=== PATIENT | female | born 1960 | race Hispanic/Latino ===

== ENCOUNTER 2024-10-05 22:26 | Emergency (ER) | payer OTHER, SELFPAY ==
--- OUTSIDE RECORDS SUMMARY | 2024-10-05 22:29 | XMS REPORT | Continuity of Care Document ---
Author Name Unknown Address [address] [facility] [address] [place] [address] [facility] Address [address] [facility] [place] [address] Care Team Providers Care Stock Patch Sawyer Name Role Phone Chaya Sesay Attending Clinician Unavailabl e Physician, No Primary or Family Admitting Clinic stacie Unavailable Chaya Sesay Admitting Clinician Unavailabl e Payers Payer Name Policy Type Policy Number Effective Date Expirati on Date Source Allergies, Adverse Reactions, Alerts Allergy Name Allergy Type Status Severity Reaction(s) Onset Date Inactive Date Treating Clinician Comments Source No Known Allergie s DA Active U 12-21 00:00: 00 [facility] Encounters Start Date/Time End Date/Time Encounter Type Admission Type Attending Clinicians Care Facility Care Department Encounter ID Source 2021-12-21 08:00:00 Inpatient Chaya Wallace [facility] [id number] [facility] 2021-12-23 20:57:00 2021-12-24 15:30:00 [facility] [id number] [facility] 2021-12-23 20:57:00 2021-12-24 15:30:00 Inpatient Chaya Wallace [facility] [id number] [facility] Results Test Description Test Time Test Comments Results Result Co mments Source [id number] 05:07:00* Test Item Value Reference Range Interpretation Comme nts PHOSPHOROUS (test code = PHOS) 3.9 MG/DL 2.5-4.9 N [id number] 05:07:00* Test Item Value Reference Range Interpretation Comme nts MAGNESIUM (test code = MAG) 1.99 mg/dL 1.80-2.40 N CBC W/AUTO [id number] 04:52:00* Test Item Value Reference Range Interpretation Comme nts WHITE BLOOD CELL (test code = WBC) 9.4 x10 3/uL 4.5-11.0 N RED BLOOD CELL (test code = RBC) 4.32 x10 6/uL 3.54-5.02 N HEMOGLOBIN (test code = HGB) 12.8 g/dL 11.0-15.0 N HEMATOCRIT (test code = HCT) 39.5 % 33.0-45.0 N MEAN CELL VOLUME (test code = MCV) 91.4 fL 81.0-99.0 N MEAN CELL HGB (test code = MCH) 29.6 pg 27.0-33.0 N MEAN CELL HGB CONCETRATION (test code = MCHC) 32.4 g/dL 33.0-37.0 L RED CELL DISTRIBUTION WIDTH CV (test code = RDW) 13.0 % 11.5-14.5 N RED CELL DISTRIBUTION WIDTH SD (test code = RDW-SD) 43.1 fL 37.0-54.0 N PLATELET COUNT (test code = PLT) 199 x10 3/uL 150-400 N MEAN PLATELET VOLUME (test c ode = MPV) 11.7 fL 7.0-9.0 H NEUTROPHIL % (test code = NT%) 86.5 % 56.0-77.0 H IMMATURE GRANULOCYTE % (test code = IG%) 0.2 % 0.0-2.0 N LYMPHOCYTE % (test code = LY%) 10.9 % 14.0-32.0 L MONOCYTE % (test code = MO%) 2.3 % 4.8-9.0 L EOSINOPHIL % (test code = EO%) 0.0 % 0.3-3.7 L BASOPHIL % (test code = BA%) 0.1 % 0.0-2.0 N NUCLEATED RBC % (test code = NRBC%) 0.0 % 0-0 N NEUTROPHIL # (test code = NT#) 8.12 x10 3/uL 2.0-7.6 H IMMATURE GRANULOCYTE # (test code = IG#) 0.02 x10 3/uL 0.00-0.03 N LYMPHOCYTE # (test code = LY#) 1.02 x10 3/uL 1.0-3.8 N MONOCYTE # (test code = MO#) 0.22 x10 3/uL 0.1-0.8 N EOSINOPHIL # (test code = EO#) 0.00 x10 3/uL 0.0-0.2 N BASOPHIL # (test code = BA#) 0.01 x10 3/uL 0.0-0.2 N NUCLEATED RBC # (test code = NRBC#) 0.00 x10 3/uL 0.0-0.1 N MANUAL DIFF REQUIRED (test c ode = MDIFF) NO BASIC METABOLIC [id number] 18:11:00* Test Item Value Reference Range Interpretation Comme nts SODIUM (test code = NA) 143 mEq/L 134-147 N POTASSIUM (test code = K) 3.9 mEq/L 3.4-5.0 N CHLORIDE (test code = CL) 110 mEq/L 100-108 H CARBON DIOXIDE (test code = CO2) 28 mEq/l 21-33 N ANION GAP (test code = GAP) 8 0-20 N GLUCOSE (test code = GLU) 130 mg/dL 70-110 H BLOOD UREA NITROGEN (test code = BUN) 9 mg/dL 7-18 N GLOMERULAR FILTRATION RATE (test code = GFR) 84.5 80-90 N Units of measure = ml/min/1.73 m2 CREATININE (test code = CREAT) 0.7 mg/dL 0.6-1.3 N CALCIUM (test code = CA) 9.0 mg/dL 8.0-10.5 N [id number] 18:11:00* Test Item Value Reference Range Interpretation Comme nts PHOSPHOROUS (test code = PHOS) 3.7 MG/DL 2.5-4.9 N [id number] 18:11:00* Test Item Value Reference Range Interpretation Comme nts MAGNESIUM (test code = MAG) 2.07 mg/dL 1.80-2.40 N CBC W/AUTO [id number] 17:56:00* Test Item Value Reference Range Interpretation Comme nts WHITE BLOOD CELL (test code = WBC) 8.0 x10 3/uL 4.5-11.0 RED BLOOD CELL (test code = RBC) 4.35 x10 6/uL 3.54-5.02 N HEMOGLOBIN (test code = HGB) 12.9 g/dL 11.0-15.0 N HEMATOCRIT (test code = HCT) 39.5 % 33.0-45.0 N MEAN CELL VOLUME (test code = MCV) 90.8 fL 81.0-99.0 N MEAN CELL HGB (test code = MCH) 29.7 pg 27.0-33.0 N MEAN CELL HGB CONCETRATION (test code = MCHC) 32.7 g/dL 33.0-37.0 L RED CELL DISTRIBUTION WIDTH CV (test code = RDW) 13.1 % 11.5-14.5 N RED CELL DISTRIBUTION WIDTH SD (test code = RDW-SD) 43.3 fL 37.0-54.0 N PLATELET COUNT (test code = PLT) 225 x10 3/uL 150-400 N MEAN PLATELET VOLUME (test c ode = MPV) 10.6 fL 7.0-9.0 H NEUTROPHIL % (test code = NT%) 69.7 % 56.0-77.0 N IMMATURE GRANULOCYTE % (test code = IG%) 0.4 % 0.0-2.0 N LYMPHOCYTE % (test code = LY%) 26.5 % 14.0-32.0 N MONOCYTE % (test code = MO%) 2.1 % 4.8-9.0 L EOSINOPHIL % (test code = EO%) 0.8 % 0.3-3.7 N BASOPHIL % (test code = BA%) 0.5 % 0.0-2.0 N NUCLEATED RBC % (test code = NRBC%) 0.0 % 0-0 N NEUTROPHIL # (test code = NT#) 5.56 x10 3/uL 2.0-7.6 N IMMATURE GRANULOCYTE # (test code = IG#) 0.03 x10 3/uL 0.00-0.03 N LYMPHOCYTE # (test code = LY#) 2.11 x10 3/uL 1.0-3.8 N MONOCYTE # (test code = MO#) 0.17 x10 3/uL 0.1-0.8 N EOSINOPHIL # (test code = EO#) 0.06 x10 3/uL 0.0-0.2 N BASOPHIL # (test code = BA#) 0.04 x10 3/uL 0.0-0.2 N NUCLEATED RBC # (test code = NRBC#) 0.00 x10 3/uL 0.0-0.1 N MANUAL DIFF REQUIRED (test c ode = MDIFF) NO - XR KNEE 1 OR 2 V [id number] 00:00:00 [facility] 1960 Sex: F FAX: Chaya Sesay DO [phone] Cooks: St: ADM FAX: Walt Guan NP [phone] Name: KAREN FRANCISCO [facility] : 1960 Age/S: 61/F [address] [place] [address] Blvd Unit #: [id number] Loc: [place] [address] Phys: Walt Guan NP Acct: [id number] Dis Date: Status: ADM IN PHONE #: [phone] Exam Date: 12/23/2021 1740 FAX #: [phone] Reason: s/p right tka EXAMS: CPT CODE: [id number] XR KNEE 1OR 2 V RT 13629 PROCEDURE INFORMATION: Exam: XR Right Knee Exam date and time: 12/23/2021 5:27 PM Age: 61 years old Clinical indication: Screening exam; S/P right tka TECHNIQUE: Imaging protocol: Radiologic exam of the Right knee. Views: 1 or 2 views. COMPARISON: CT LOWER EXTRM W/O C RT 12/21/2021 12:05 PM Findings: Total knee arthroplasty is present with cemented femoral and tibial components without evidence for hardware loosening. The patella has been resurfaced. No acute fracture or dislocation is seen. Expected anterior knee soft tissue gas and drainage tube seen. Impression: Postop total k nee arthroplasty. No complications identified radiographically. at 7699 Reported and signed by: Oliver Mckeon M.D. CC: Chhaya Guan NP Technologist: RT Gerald(Gloria) Trnscrd Date/Time/By: 12/23/2021 (7835) : By: [email or web address] Orig Print D/T: S: 12/23/2021 (0025) PAGE 1 Signed Report URINALYSIS [id number] 11:12:00* Test Item Value Reference Range Interpretation Comme nts UA COLOR (test code = COLU) YELLOW YEL/STRAW UA APPEARANCE (test code = APPU) CLEAR CLEAR UA GLUCOSE DIPSTICK (test co de = DGLUU) NEGATIVE NEGATIVE UA BILIRUBIN DIPSTICK (test code = BILU) NEGATIVE NEGATIVE UA KETONE DIPSTICK (test cod e = KETU) NEGATIVE NEGATIVE UA SPECIFIC GRAVITY (test co de = SGU) 1.016 1.005-1.030 N UA BLOOD DIPSTICK (test code = KELLY) NEGATIVE NEGATIVE UA PH DIPSTICK (test code = FREDA) 5.0 5.0-7.0 N UA PROTEIN DIPSTICK (test co de = PROU) NEGATIVE NEGATIVE UA UROBILINIOGEN DIPSTICK (t est code = URO) 0.2 mg/dL 0.2-1.0 UA NITRITE DIPSTICK (test co de = RICCI) NEGATIVE NEGATIVE UA LEUKOCYTE ESTERASE DIPSTI CK (test code = LEUU) 1+ NEGATIVE A UA RBC (test code = RBCU) 0-3 RBC/HPF 0-3 UA WBC NO REFLEX (test code = WBCUCL) 4-9 WBC/HPF 0-3 A UA BACTERIA (test code = BACU) TRACE /HPF NONE SEEN UA SQUAMOUS CELLS (test code = SQU) 0-5 /HPF NONE SEEN UA MUCUS (test code = MUCU) TRACE /LPF NONE SEEN COMPREHENSIVE METABOLIC [id number] 11:05:00* Test Item Value Reference Range Interpretation Comme nts SODIUM (test code = NA) 138 mEq/L 134-147 N POTASSIUM (test code = K) 3.8 mEq/L 3.4-5.0 N CHLORIDE (test code = CL) 107 mEq/L 100-108 N CARBON DIOXIDE (test code = CO2) 29 mEq/l 21-33 N ANION GAP (test code = GAP) 6 0-20 N GLUCOSE (test code = GLU) 103 mg/dL 70-110 N BLOOD UREA NITROGEN (test code = BUN) 11 mg/dL 7-18 N GLOMERULAR FILTRATION RATE (test code = GFR) 84.5 80-90 N Units of measure = ml/min/1.73 m2 CREATININE (test code = CREAT) 0.7 mg/dL 0.6-1.3 N TOTAL PROTEIN (test code = PROT) 7.1 g/dL 6.4-8.2 N ALBUMIN (test code = ALB) 4.00 g/dL 3.4-5.0 N CALCIUM (test code = CA) 8.9 mg/dL 8.0-10.5 N BILIRUBIN TOTAL (test code = BILT) 0.40 mg/dL 0.0-1.0 N SGOT/AST (test code = AST) 23 IUnit/L 15-37 N SGPT/ALT (test code = ALT) 22 IUnit/L 30-65 L ALKALINE PHOSPHATASE TOTAL (test code = ALKP) 95 IUnit/L 20-125 N PROTHROMBIN [id number] 10:55:00* Test Item Value Reference Range Interpretation Comme nts PROTHROMBIN TIME PATIENT (test code = PTP) 10.9 SECONDS 9.3-12.9 N INTERNATIONAL NORMAL RATIO (test code = INR) 1.0 0.8-1.2 N TARGET INR BY INDICATION Indication INR1. Prophylaxis of venous thrombosis 2.0 - 3.0 (orthopedic surgery), Prophylaxis of venous thrombosis (other than high-risk surgery), Treatment of Deep Vein Thrombosis/Pulmonary Embolism, Prevention of systemic embolism - Tissue heart valves, Acute Myocardial Infarction (to prevent systemic embolism), Valvular heart disease, Atrial Fibrillation, Bileaflet mechanical valve in aortic position.2. Mechanical prosthetic valves (high risk), 2.5 - 3.5 Presence of Lupus Anticoagulant or Antiphospholipid Antibodies, Prevention of systemic embolism - Acute Myocardial Infarction (to prevent recurrent infarct). THROMBOPLASTIN TIME [id number] 10:55:00* Test Item Value Reference Range Interpretation Comme nts THROMBOPLASTIN TIME PARTIAL (test code = PTT) 31.8 Seconds 25.0-39.5 N Therapeutic Rang e: 50.4 - 88.3 Seconds Effective 09/19/2018 CBC W/AUTO [id number] 10:45:00* Test Item Value Reference Range Interpretation Comme nts WHITE BLOOD CELL (test code = WBC) 5.6 x10 3/uL 4.5-11.0 N RED BLOOD CELL (test code = RBC) 4.35 x10 6/uL 3.54-5.02 N HEMOGLOBIN (test code = HGB) 12.9 g/dL 11.0-15.0 N HEMATOCRIT (test code = HCT) 39.1 % 33.0-45.0 N MEAN CELL VOLUME (test code = MCV) 89.9 fL 81.0-99.0 N MEAN CELL HGB (test code = MCH) 29.7 pg 27.0-33.0 N MEAN CELL HGB CONCETRATION (test code = MCHC) 33.0 g/dL 33.0-37.0 N RED CELL DISTRIBUTION WIDTH CV (test code = RDW) 13.1 % 11.5-14.5 N RED CELL DISTRIBUTION WIDTH SD (test code = RDW-SD) 43.2 fL 37.0-54.0 N PLATELET COUNT (test code = PLT) 241 x10 3/uL 150-400 N MEAN PLATELET VOLUME (test c ode = MPV) 11.1 fL 7.0-9.0 H NEUTROPHIL % (test code = NT%) 53.1 % 56.0-77.0 L IMMATURE GRANULOCYTE % (test code = IG%) 0.2 % 0.0-2.0 N LYMPHOCYTE % (test code = LY%) 36.0 % 14.0-32.0 H MONOCYTE % (test code = MO%) 7.3 % 4.8-9.0 N EOSINOPHIL % (test code = EO%) 2.5 % 0.3-3.7 N BASOPHIL % (test code = BA%) 0.9 % 0.0-2.0 N NUCLEATED RBC % (test code = NRBC%) 0.0 % 0-0 N NEUTROPHIL # (test code = NT#) 2.96 x10 3/uL 2.0-7.6 N IMMATURE GRANULOCYTE # (test code = IG#) 0.01 x10 3/uL 0.00-0.03 N LYMPHOCYTE # (test code = LY#) 2.01 x10 3/uL 1.0-3.8 N MONOCYTE # (test code = MO#) 0.41 x10 3/uL 0.1-0.8 N EOSINOPHIL # (test code = EO#) 0.14 x10 3/uL 0.0-0.2 N BASOPHIL # (test code = BA#) 0.05 x10 3/uL 0.0-0.2 N NUCLEATED RBC # (test code = NRBC#) 0.00 x10 3/uL 0.0-0.1 N MANUAL DIFF REQUIRED (test c ode = MDIFF) NO - CT LOWER EXTRM W/O C [id number] 00:00:00 [facility] : 1960 Sex: F Name: K[facility]EN [facility]ANCIS[facility] [place] : 1960 Age/S: 61 / F [address] [place] [address] Unit #: [id number] Loc: [place] [address] Phys: Chaya Sesay DO Acct: [id number] Dis Date: Status: PRE SDC PHONE #: [phone] Exam Date: 12/21/2021 1204 FAX #: [phone] Reason: OSTEOARTHRITIS RT KNEE EXAMS: CPT CODE: [id number] CT LOWER EXTRM W/[place] [address] PROCEDURE INFORMATION: Exam: CT Right Lower Extremity Without Contrast, Knee Exam date and time: 12/21/2021 12:05 PM Age: 61 years old Clinical indication: Condition or disease; Other: Osteoarthritis RT knee TECHNIQUE: Imaging protocol: CT of the Right lower extremity without contrast was performed. Exam focused on the knee. Radiation optimization: All CT scans at this facility use at least one of these dose optimization techniques: automated exposure control; mA and/or kV adjustment per patient size (includes targeted exams where dose ismatched to clinical indication); or iterative reconstruction. COMPARISON: No relevant prior studiesavailable. FINDINGS: Preoperative knee CT according to Dariela protocol. There are degenerative changes of the hips, knees, and ankles. There is soft tissue swelling. There is evidence of prepatellar lip tamar. This is incompletely evaluated. Small knee joint effusion. Evidence of pes anserine bursitis. IMPRESSION: Preoperative knee CT according to Dariela protocol. at 1428 Reported and signed by: Nicho Johnson M.D. CC: Chaya Sesay DOTechnologist:Mars Duarte, RT(R)(CT) CTDI: DLP: Trnscb Date/Time: 12/21/2021 (1427) [id number] Orig Print D/T: S: 12/21/2021 (1426) PAGE 1 Signed Report- XR CHEST 2 [id number] 00:00:00[facility] : 1960 Sex: F FAX: Chaya Sesay DO [phone] Cooks: St: PRE Name: [facility] [place] : 1960 Age/S: 61/F [address] [place] [address] Unit #: [id number] Loc: [place] [address] Phys: Chaya Sesay DO Acct: [id number] Dis Date: Status: PRE [facility] PHONE #: [phone] Exam Date: 12/21/2021 0944 FAX #: [phone] Reason: PRE-OP EXAMS: CPT CODE: [id number] XR CHEST 2 V 30108 PROCEDURE INFORMATION: Exam: XR Chest Exam date and time: 12/21/2021 9:42 AM Age: 61 years old Clinical indication: Pre-operative exam; Respiratory screening exam; Additional info: Pre-op TECHNIQUE: Imaging protocol: Radiologic exam of the chest. Views: 2 views. PA and Lateral COMPARISON: No relevant prior studies available. FINDINGS: Lungs: No consolidation. Pleural spaces: No pleural effusion. Heart/Mediastinum: The heart and vascular markings are within limits of normal. There is atherosclerotic calcification of the aorta. Bones/joints: No gross acute findings. IMPRESSION: No acute cardiopulmonary findings at 1540 Reported and signed by: Regina Clay D.O. CC: Chaya Sesay DO Technologist: RT Melissa(Gloria)(CT) Trnscrd Date/Time/By: 12/21/2021 (4425) : By: [email or web address] Orig Print D/T: S: 12/21/2021 (9520) PAGE 1 Signed ReportCT/NG, NAAT, [id number] 20:01:22* Test Item Value Reference Range Interpretation Comme nts GONORRHEA, NAAT (test code = 86434) NEGATIVE NEGATIVE IMPORTANT NO RIKY: SEE ANNOUNCEMENT AT [email or web address] Cardiovascular Imaging/Multimedia Plus | QuizScore Note: Assay methodology is nucleic acid amplification by furniture upholstery mechanic mediated amplification (TMA) utilizing the Aptima Combo 2 Assay. CHLAMYDIA, NAAT (test code = 77838) NEGATIVE NEGATIVE IMPORTANT NO RIKY: SEE ANNOUNCEMENT AT [email or web address] Cardiovascular Imaging/Donta Ang[employer] Citizen Note: Assay methodology is nucleic acid amplification by furniture upholstery mechanic mediated amplification (TMA) utilizing the Aptima Combo 2 Assay. UNLESS OTHERWISE INDICATED, ALL TESTING PERFORMED [facility] [address] [place] [address] BULLION WEIGHER: MARY WHEELER M.D. CLIA NUMBER [id number] [facility] [place]. [id number] HEPATITIS PANEL, [id number] 06:35:55* Test Item Value Reference Range Interpretation Comme nts HEPATITIS A IgM (test code = 30619) NON-REACTIVE NON-REACTIVE HEPATITIS B CORE IgM (test code = 4644) NON-REACTIVE NON-REACTIVE HEPATITIS B SURF AG (test code = 2739) NON-REACTIVE NON-REACTIVE HEPATITIS C ANTIBODY (test code = 4675) NON-REACTIVE NON-REACTIVE INTERPRETATION HEPATITIS A: (test code = 2552) (NOTE) Hepatitis A serology shows no evidence of acute hepatitis A. INTERPRETATION HEPATITIS B: (test code = 99079) (NOTE) Hepatitis B serology shows no evidence of acute hepatitis B andno indication of exposure to hepatitis B virus in the previous antonina eight months. INTERPRETATION HEPATITIS C: (test code = 31959) (NOTE) Hepatitis C serology shows no evidence of exposure to hepatitisC virus at this time. It can take up to 12 months after exposure tothe hepatitis C virus for antibodies to become detectable in the blood in certain patients. HIV 1/2 4TH GEN, RFLX [id number] 06:35:55* Test Item Value Reference Range Interpretation Comme nts HIV 1/2 4TH GEN, RFLX CONF ( test code = 3514) NON-REACTIVE NON-REACTIVE LIPID [id number] 05:40:24* Test Item Value Reference Range Interpretation Comme nts CHOLESTEROL (test code = 2210) 187 MG/DL <200 TRIGLYCERIDES (test code = 2232) 99 MG/DL <150 HDL CHOLESTEROL (test code = 2220) 76 MG/DL >39 CALC LDL CHOL (test code = 2237) 92 MG/DL <100 NOTE: CALCULATED LDL IS BASED ON CARMELO-BRANTLEY METHOD WHICHINCLUDES ADJUSTABLE TRIGLYCERIDE:VLDL CHOLESTEROL RATIO.THIS FACTOR VARIES BY MEASURED TRIGLYCERIDE AND NON-HDLCHOLESTEROL CONCENTRATIONS WITH INCREASED CALCULATED LDL SEENIN HIGHER TRIGLYCERIDE OR LOWER NON-HDL SPECIMENS. FOR MOREINFORMATION, SEE CLIENT ANNOUNCEMENT AT [email or web address] /CalcLDL-C RISK RATIO LDL/HDL (test code = 2238) 1.21 RATIO <3.22 COMPREHENSIVE METABOLIC [id number] 05:40:24* Test Item Value Reference Range Interpretation Comme nts GLUCOSE (test code = 2217) 99 MG/DL 70-99 BUN (test code = 2208) 11 MG/DL 8-23 CREATININE (test code = 2214) 0.66 MG/DL 0.60-1.30 eGFR (2020 CKD-EPI) (test code = 00107) 99 ML/MIN/1.73 >60 CALC BUN/CREAT (test code = 2235) 17 RATIO 6-28 SODIUM (test code = 223) 143 MEQ/L 133-146 POTASSIUM (test code = 2228) 4.4 MEQ/L 3.5-5.4 CHLORIDE (test code = 2215) 106 MEQ/L 95-107 CARBON DIOXIDE (test code = 2206) 25 MEQ/L 19-31 CALCIUM (test code = 2209) 9.1 MG/DL 8.5-10.5 PROTEIN, TOTAL (test code = 222) 6.9 G/DL 6.1-8.3 ALBUMIN (test code = 2200) 4.4 G/DL 3.5-5.2 CALC GLOBULIN (test code = 2240) 2.5 G/DL 1.9-3.7 CALC A/G RATIO (test code = 2233) 1.8 RATIO 1.0-2.6 BILIRUBIN, TOTAL (test code = 7) 0.2 MG/DL See_Comment [Automated [employer] ssage] The system which generated this result transmitted reference range: <=1.2. The reference range was not used to interpret this result as normal/abnormal. ALKALINE PHOSPHATASE (test code = 2203) 116 U/L 40-140 AST (test code = 8) 22 U/L 9-40 ALT (test code = 2219) 20 U/L 5-40 CBC W/AUTO DIFF WITH [id number] 05:16:31* Test Item Value Reference Range Interpretation Comme nts WBC (test code = 1001) 5.4 K/UL 3.5-11.0 RBC (test code = 1002) 4.55 M/UL 3.80-5.40 HEMOGLOBIN (test code = 1003) 13.5 G/DL 11.5-15.5 HEMATOCRIT (test code = 1004) 39.9 % 34.0-45.0 MCV (test code = 1005) 87.7 fL 80.0-99.0 MCH (test code = 1006) 29.7 PG 25.0-33.0 MCHC (test code = 1007) 33.8 G/DL 31.0-36.0 RDW (test code = 1038) 12.9 % 11.5-15.0 NEUTROPHILS (test code = 1008) 54.4 % LYMPHOCYTES (test code = 1010) 33.6 % MONOCYTES (test code = 1011) 8.7 % EOSINOPHILS (test code = 1012) 2.6 % BASOPHILS (test code = 1013) 0.7 % IMMATURE GRANULOCYTES (test code = 1036) 0.0 % NUCLEATED RBCS (test code = 1065) 0.0 /100 WBC'S See_Comment [Automated [employer]] The system which generated this result transmitted reference range: 0.0. The reference range was not used to interpret this result as normal/abnormal. PLATELET COUNT (test code = 1015) 272 K/UL 130-400 ABSOLUTE NEUTROPHILS (test code = 1066) 2.95 K/UL 1.50-7.50 ABSOLUTE LYMPHOCYTES (test code = 1067) 1.82 K/UL 1.00-4.00 ABSOLUTE MONOCYTES (test code = 1068) 0.47 K/UL 0.20-1.00 ABSOLUTE EOSINOPHILS (test code = 1040) 0.14 K/UL 0.00-0.50 ABSOLUTE BASOPHILS (test code = 1069) 0.04 K/UL 0.00-0.20 ABS IMMATURE GRANULOCYTES (test code = 1020) 0.00 K/UL 0.00-0.10 ABS NUCLEATED RBCS (test code = 50768) 0.00 K/UL 0.00-0.11 [id number] 04:20:38* Test Item Value Reference Range Interpretation Comme nts RPR RESULT (test code = 3501) NON-REACTIVE NON-REACTIVE RPR TITER (test code = 3500) NOT INDIC. TITER NOT INDIC. Notes Date/Time Note Provider Source 2021-12-24 17:42:00 [facility]) Pain Management Consult Note REPORT#:[id number] REPORT STATUS: Signed DATE:12/24/21 TIME: 1741 PATIENT: KAREN FRANCISCO UNIT #: [id number] ROOM/BED: [place] [address] : [birth year] AGE: 61 SEX: F ATTEND: Chaya Sesay DO ADM AUTHOR: Lynda Ballesteros APRN * ALL edits or amendments must be made on the electronic/computer document * History of Present Illness Primary Care Physician: unknown HPI: Karen Francisco is a 61yo female with PMH of HTN that was admitted for elective knee surgery. The patient complains of right knee pain that started s/p right TKA on 12/23/21. The patient describes the pain as a shooting, stinging pain that is non- radiating. The pain worsens with walking, and improves with taking pain medications. Rates the pain a 5/10. The patient takes no pain medications at home. Denies n/v/drowsiness. Review of Systems Additional notes: 12 point ROS reviewed and negative unless stated otherwise History Past History Past Medical History: Reports: Hypertension. Past surgical history: denies PSH Past social history: no alcohol use, no drug abuse, no tobacco use Medications: Home Medications: Medication Dose/Rte/Freq Days Qty Entered Last Max Daily Dose Reviewed methocarbamoL (ROBAXIN) 500 MG PO BID 40 12/24/21 Strength: 500 MG TAB 1127 ASPIRIN EC (ECOTRIN) 81 MG PO BID 60 12/24/21 Strength: 81 MG TAB.EC 1127 GABAPENTIN (NEURONTIN) 200 MG PO TID 60 12/24/21 Strength: 100 MG CAP 1127 POLYETHYLENE GLYCOL 17 GM PO BID 60 12/24/21 3350 1127 (MIRALAX) Strength: 17 GRAM POWDER DOCUSATE SODIUM 0 MG PO ASDIR 60 12/24/21 (COLACE) 1127 Strength: 100 MG CAP Current Hospital Medications: Anti-Infective Agents Sig/Jose Start time Last Medication Dose Route Stop Time Status Admin Cefazolin Sodium 2 GM Q8H 12/23 2200 DC 12/24 (KEFZOL OR ANCEF) IV 12/24 1401 1457 Antihistamine Drugs Sig/Jose Start time Last Medication Dose Route Stop Time Status Admin Promethazine HCl 25 MG PACU ONCE PRN 12/23 1300 DC (PHENERGAN) PO 12/23 2256 Autonomic Drugs Sig/Jose Start time Last Medication Dose Route Stop Time Status Admin Methocarbamol 500 MG BID 12/23 2100 DCD 12/24 (ROBAXIN) PO 01/22 2059 0846 Cardiovascular Drugs Sig/Jose Start time Last Medication Dose Route Stop Time Status Admin Hydralazine HCl 10 MG Q6H PRN PRN 12/23 1330 DCD (APRESOLINE) IV 01/22 1329 Hydralazine HCl 2 MG PACU Q10MIN PRN PRN 12/23 1300 DC (APRESOLINE) IV 12/23 2256 Labetalol HCl 5 MG PACU Q10MIN PRN PRN 12/23 1300 DC (LABETALOL HCL) IV 12/23 2256 Central Nervous System Agents Sig/Jose Start time Last Medication Dose Route Stop Time Status Admin Hydrocodone Bitart/ 1 TAB Q4H PRN PRN 12/24 1015 DCD 12/24 Acetaminophen PO 12/29 1014 1103 (NORCO 10/325) Aspirin 81 MG BID 12/23 2100 DCD 12/24 (ASPIRIN) PO 01/22 2059 0845 Gabapentin 200 MG TID 12/23 1500 DCD 12/24 (NEURONTIN) PO 01/22 1459 1456 Acetaminophen 650 MG Q4H PRN PRN 12/23 1330 DCD 12/24 (TYLENOL) PO 01/22 1329 0431 Fentanyl Citrate 100 MCG PACU Q10MIN PRN PRN 12/23 1300 DC (SUBLIMAZE) IV 12/23 2256 Fentanyl Citrate 50 MCG PACU Q10MIN PRN PRN 12/23 1300 DC (SUBLIMAZE) IV 12/23 2256 Hydrocodone Bitart/ 1 TAB PACU ONCE 12/23 1300 DC Acetaminophen PO 12/23 2256 (NORCO 5/325) Hydromorphone HCl 1 MG PACU Q10MIN PRN PRN 12/23 1300 DC (DILAUDID) IV 12/23 2256 Hydromorphone HCl 0.5 MG PACU Q5MIN PRN PRN 12/23 1300 DC (DILAUDID) IV 12/23 2256 Meperidine HCl 12.5 MG PACU ONCE PRN 12/23 1300 DC (DEMEROL 50MG/ML) IV 12/23 2256 Morphine Sulfate 2 MG PACU Q10MIN PRN PRN 12/23 1300 DC (morphine SULFATE) IV 12/23 2256 Tramadol HCl 50 MG PACU ONCE 12/23 1300 DC (ULTRAM) PO 12/23 2256 Electrolytic, Caloric, And Matt Sig/Jose Start time Last Medication Dose Route Stop Time Status Admin Sodium Chloride 20 ML ASDIR 12/23 1330 DCD (SODIUM CHLORIDE) IV 01/22 132 Lactated Ringer's 1,000 ML .Q24H 12/23 1100 DC (LACTATED RINGERS) IV 12/23 2058 Gastrointestinal Drugs Sig/Jose Start time Last Medication Dose Route Stop Time Status Admin Docusate Sodium 100 MG BID 12/23 2100 DCD 12/24 (COLACE) PO 01/22 2059 0846 Polyethylene Glycol 17 GM BID 12/23 2100 DCD 12/24 (MIRALAX) PO 01/22 2059 0846 Ondansetron HCl 4 MG Q4H PRN PRN 12/23 1330 DCD (ZOFRAN) IV 01/22 1329 Ondansetron HCl 4 MG PACU ONCE PRN 12/23 1300 DC (ZOFRAN) IV 12/24 2255 Hormones And Synthetic Substit Sig/Jose Start time Last Medication Dose Route Stop Time Status Admin Insulin Human Lispro 0 PACU ONCE PRN 12/23 1300 DC (HUMALOG) SUBQ 12/24 2255 Local Anesthetics (Parenteral) Sig/Jose Start time Last Medication Dose Route Stop Time Status Admin Ropivacaine 150 MG ASDIR PRN 12/23 1300 DC (NAROPIN 0.5% 150 MG/ LOCAL 12/24 2255 30mL) Allergies: Coded Allergies: No Known Allergies (12/21/21) Free Text Hx Notes Free text Hx notes: Family history non-contributory. Objective Physical Exam VS/I O: Last Documented: Result Date Time Pulse Ox 96 12/24 1200 B/P 135/65 12/24 1200 O2 Delivery Room air 12/24 1200 Temp 36.5 12/24 1200 Pulse 93 12/24 1200 Resp 19 12/24 1200 O2 Flow Rate 10 12/23 1622 24 hour I O ending at 0700: 12/24 0700 12/23 1900 Intake Total 900 80 Output Total Balance 900 80 Intake, Oral 900 80 Number Voids 2 PATIENT WEIGHT: Weight (lb): 192 Weight (oz): 0 Weight (kg): 87.09 General appearance: alert, awake, oriented Head/eyes: atraumatic, EOMI, normocephalic ENT: normal nose, normal sinus, moist mucosal membranes Neck: no masses or swelling, supple/no meningismus Cardiovascular: normal capillary refill, regular rate rhythm Respiratory: no distress, no tenderness, aerating well, symmetric expansion Abdomen: soft, non-tender, no rebound, no distention Extremities: no edema, no clubbing, no cyanosis, decreased range of motion (of RLE 2/2 pain) Neuro/CLINICAL RECRUITER: alert, oriented X 3, normal speech Skin: dry, intact, warm, surgical dsg noted to right knee Results Findings/data: Laboratory Tests: 12/24 0430 Chemistry Sodium (134 - 147 mEq/L) 140 Potassium (3.4 - 5.0 mEq/L) 4.2 Chloride (100 - 108 mEq/L) 106 Carbon Dioxide (21 - 33 mEq/l) 27 Anion Gap (0 - 20) 11 BUN (7 - 18 mg/dL) 11 Creatinine (0.6 - 1.3 mg/dL) 0.7 Glomerular Filtr Rate (80 - 90) 84.5 Glucose (70 - 110 mg/dL) 171 H Calcium (8.0 - 10.5 mg/dL) 9.3 Phosphorus (2.5 - 4.9 MG/DL) 3.9 Magnesium (1.80 - 2.40 mg/dL) 1.99 Hematology WBC (4.5 - 11.0 x10 3/uL) 9.4 RBC (3.54 - 5.02 x10 6/uL) 4.32 Hgb (11.0 - 15.0 g/dL) 12.8 Hct (33.0 - 45.0 %) 39.5 MCV (81.0 - 99.0 fL) 91.4 MCH (27.0 - 33.0 pg) 29.6 MCHC (33.0 - 37.0 g/dL) 32.4 L RDW (11.5 - 14.5 %) 13.0 Plt Count (150 - 400 x10 3/uL) 199 MPV (7.0 - 9.0 fL) 11.7 H Neut % (Auto) (56.0 - 77.0 %) 86.5 H Lymph % (Auto) (14.0 - 32.0 %) 10.9 L Mckinley % (Auto) (4.8 - 9.0 %) 2.3 L Eos % (Auto) (0.3 - 3.7 %) 0.0 L Baso % (Auto) (0.0 - 2.0 %) 0.1 Neut # (Auto) (2.0 - 7.6 x10 3/uL) 8.12 H Lymph # (Auto) (1.0 - 3.8 x10 3/uL) 1.02 Mckinley # (Auto) (0.1 - 0.8 x10 3/uL) 0.22 Eos # (Auto) (0.0 - 0.2 x10 3/uL) 0.00 Baso # (Auto) (0.0 - 0.2 x10 3/uL) 0.01 Abs Immat Gran (auto) (0.00 - 0.03 x10 3/uL) 0.02 Add Manual Diff NO Immature Gran % (0.0 - 2.0 %) 0.2 Nucleated RBC % (0 - 0 %) 0.0 Nucleated RBCs # (Man) (0.0 - 0.1 x10 3/uL) 0.00 Results: labs reviewed, vital signs stable Diagnosis, Assessment Plan Free text A P: Karen Francisco is a 61yo female with PMH of HTN that was admitted for elective knee surgery. Right knee pain s/p right TKA on 12/23/21 TRAVEL REGISTERED NURSE PACU verified and shows no narcotic use. Start [place] 10/325mg po Q4hrs PRN moderate pain Continue Robaxin 500mg po BID for muscle spasms Surgical site per ortho Bowel regimen DC planning - Rx sent to pharmacy per Dr. Jorgensen Please hold all narcotics for SBP < 90mmhg, Respiratory rate <8bpm, or altered mentation. please call with any questions or concerns [phone] Thank you for allowing me to participate in this patient's care. Plan of care discussed with Dr. Jorgensen, patient, primary team, and RN. All questions answered. Patient agrees with above plan of care. All diagnostic studies, TRAVEL REGISTERED NURSE PACU, and labs in the past 24 hours reviewed and interpreted [place] TRAVEL REGISTERED NURSE PACU verified 12/24/21 at 0049 at 1207 RPT #:[id number] END OF REPORT [facility] 2021-12-24 08:05:00 [facility] Orthopaedic Progress Note REPORT#:[id number] REPORT STATUS: Signed DATE:12/24/21 TIME: 08 PATIENT: KAREN FRANCISCO UNIT #: [id number] ROOM/BED: [place] [id number] : 58 AGE: 61 SEX: F ATTEND: Chaya Sesay DO ADM AUTHOR: Angela Kennedy * ALL edits or amendments must be made on the electronic/computer document * Subjective HPI: Pt seen and examined. AVSS Objective VS: Last Documented: Result Date Time Pulse Ox 96 12/24 0400 B/P 123/59 12/24 0400 O2 Delivery Room air 12/24 0400 Temp 36.0 12/24 0400 Pulse 51 12/24 0400 Resp 19 12/24 0400 O2 Flow Rate 10 12/23 1622 PATIENT WEIGHT: Weight (lb): 192 Weight (oz): 14.47 Weight (kg): 87.500 Medications: Active Meds + DC'd Last 24 Hrs Cefazolin Sodium (KEFZOL OR ANCEF) 2 GM Q8H IV Aspirin (ASPIRIN) 81 MG BID PO Docusate Sodium (COLACE) 100 MG BID PO Methocarbamol (ROBAXIN) 500 MG BID PO Polyethylene Glycol (MIRALAX) 17 GM BID PO Gabapentin (NEURONTIN) 200 MG TID PO Ketorolac Tromethamine (TORADOL 30 MG) 0 .STK-MED ONE .ROUTE (DC) Ketamine HCl (KETAMINE 500MG/10ML) 0 .STK-MED ONE IM (DC) Dexamethasone Sodium Phosphate (DECADRON) 0 .STK-MED ONE .ROUTE (DC) Ondansetron HCl (ZOFRAN) 0 .STK-MED ONE .ROUTE (DC) Midazolam HCl (VERSED) 0 .STK-MED ONE .ROUTE (DC) Morphine Sulfate (DURAMORPH) 0 .STK-MED ONE .ROUTE (DC) Acetaminophen (TYLENOL) 650 MG Q4H PRN PRN PO Hydralazine HCl (APRESOLINE) 10 MG Q6H PRN PRN IV Ondansetron HCl (ZOFRAN) 4 MG Q4H PRN PRN IV Sodium Chloride (SODIUM CHLORIDE) 20 ML ASDIR IV Propofol (DIPRIVAN 1,000MG/100ML) 100 ML .STK-MED ONE IV (DC) Vancomycin HCl (VANCOMYCIN HCL) 0 .STK-MED ONE .ROUTE (DC) Bupivacaine HCl (MARCAINE 0.5%) 0 .STK-MED ONE .ROUTE (DC) Gentamicin Sulfate (GARAMYCIN) 0 .STK-MED ONE .ROUTE (DC) Tranexamic Acid (Cyklokapron) 0 .STK-MED ONE .ROUTE (DC) Vancomycin HCl (VANCOMYCIN HCL) 0 .STK-MED ONE .ROUTE (DC) Ketorolac Tromethamine (TORADOL 60 MG) 0 .STK-MED ONE IM (DC) Methylprednisolone Acetate (DEPO-MedroL) 0 .STK-MED ONE .ROUTE (DC) Fentanyl Citrate (SUBLIMAZE) 100 MCG PACU Q10MIN PRN PRN IV (DC) Fentanyl Citrate (SUBLIMAZE) 50 MCG PACU Q10MIN PRN PRN IV (DC) Hydralazine HCl (APRESOLINE) 2 MG PACU Q10MIN PRN PRN IV (DC) Hydrocodone Bitart/Acetaminophen (NORCO 5/325) 1 TAB PACU ONCE PO (DC) Hydromorphone HCl (DILAUDID) 1 MG PACU Q10MIN PRN PRN IV (DC) Hydromorphone HCl (DILAUDID) 0.5 MG PACU Q5MIN PRN PRN IV (DC) Insulin Human Lispro (HUMALOG) 0 PACU ONCE PRN SUBQ (DC) Labetalol HCl (LABETALOL HCL) 5 MG PACU Q10MIN PRN PRN IV (DC) Meperidine HCl (DEMEROL 50MG/ML) 12.5 MG PACU ONCE PRN IV (DC) Morphine Sulfate (morphine SULFATE) 2 MG PACU Q10MIN PRN PRN IV (DC) Ondansetron HCl (ZOFRAN) 4 MG PACU ONCE PRN IV (DC) Promethazine HCl (PHENERGAN) 25 MG PACU ONCE PRN PO (DC) Ropivacaine (NAROPIN 0.5% 150 MG/30mL) 150 MG ASDIR PRN LOCAL (DC) Tramadol HCl (ULTRAM) 50 MG PACU ONCE PO (DC) Propofol (DIPRIVAN 200MG/20ML INJECTION) 20 ML .STK-MED ONE IV (DC) Midazolam HCl (VERSED) 0 .STK-MED ONE .ROUTE (DC) Ropivacaine (NAROPIN 0.5% 150 MG/30mL) 0 .STK-MED ONE .ROUTE (DC) Lidocaine HCl (XYLOCAINE) 0 .STK-MED ONE .ROUTE (DC) Propofol (DIPRIVAN 200MG/20ML INJECTION) 0 .STK-MED ONE IV (DC) Fentanyl Citrate (SUBLIMAZE) 100 MCG PACU Q10MIN PRN PRN IV (DC) Fentanyl Citrate (SUBLIMAZE) 50 MCG PACU Q10MIN PRN PRN IV (DC) Hydralazine HCl (APRESOLINE) 2 MG PACU Q10MIN PRN PRN IV (DC) Hydrocodone Bitart/Acetaminophen (NORCO 5/325) 1 TAB PACU ONCE PO (DC) Hydromorphone HCl (DILAUDID) 1 MG PACU Q10MIN PRN PRN IV (DC) Hydromorphone HCl (DILAUDID) 0.5 MG PACU Q5MIN PRN PRN IV (DC) Insulin Human Lispro (HUMALOG) 0 PACU ONCE PRN SUBQ (DC) Labetalol HCl (LABETALOL HCL) 5 MG PACU Q10MIN PRN PRN IV (DC) Lactated Ringer's (LACTATED RINGERS) 1,000 ML .Q24H IV (DC) Meperidine HCl (DEMEROL 50MG/ML) 12.5 MG PACU ONCE PRN IV (DC) Morphine Sulfate (morphine SULFATE) 2 MG PACU Q10MIN PRN PRN IV (DC) Ondansetron HCl (ZOFRAN) 4 MG PACU ONCE PRN IV (DC) Promethazine HCl (PHENERGAN) 25 MG PACU ONCE PRN PO (DC) Ropivacaine (NAROPIN 0.5% 150 MG/30mL) 150 MG ASDIR PRN LOCAL (DC) Tramadol HCl (ULTRAM) 50 MG PACU ONCE PO (DC) Bupivacaine HCl (MARCAINE 0.5%) 0 .STK-MED ONE .ROUTE (DC) Tranexamic Acid (Cyklokapron) 0 .STK-MED ONE .ROUTE (DC) Vancomycin HCl (VANCOMYCIN HCL) 0 .STK-MED ONE .ROUTE (DC) Gentamicin Sulfate (GARAMYCIN) 0 .STK-MED ONE .ROUTE (DC) Ketorolac Tromethamine (TORADOL 60 MG) 0 .STK-MED ONE IM (DC) Methylprednisolone Acetate (DEPO-MedroL) 0 .STK-MED ONE .ROUTE (DC) Morphine Sulfate (DURAMORPH) 0 .STK-MED ONE .ROUTE (DC) Acetaminophen (TYLENOL EXTRA STRENGTH) 0 .STK-MED ONE .ROUTE (DC) Cefazolin Sodium (KEFZOL OR ANCEF) 0 .STK-MED ONE .ROUTE (DC) Celecoxib (CeleBREX) 0 .STK-MED ONE .ROUTE (DC) Gabapentin (NEURONTIN) 0 .STK-MED ONE .ROUTE (DC) Celecoxib (CeleBREX) 200 MG PREOP ONCALL PO (DC) Cefazolin Sodium (KEFZOL OR ANCEF) 2 GM PREOP ONCALL IV (DC) Sodium Chloride (SODIUM CHLORIDE) 20 ML PREOP ONCALL IV (DC) Acetaminophen (TYLENOL EXTRA STRENGTH) 1,000 MG PREOP ONCALL PO (DC) Gabapentin (NEURONTIN) 200 MG PREOP ONCALL PO (DC) Lactated Ringer's (LACTATED RINGERS) 1,000 ML PREOP ONCALL IV (DC) Lidocaine HCl (LIDOCAINE HCL/PF) 2 ML PREOP ONCALL LOCAL (DC) Lidocaine HCl (LIDOCAINE HCL/PF) 2 ML PREOP ONCALL LOCAL (DC) Sodium Chloride (SODIUM CHLORIDE 0.9%) 500 ML PREOP ONCALL IV (DC) Sodium Chloride (SODIUM CHLORIDE 0.9%) 500 ML PREOP ONCALL IV (DC) Sodium Chloride (SODIUM CHLORIDE 0.9%) 1,000 ML PREOP ONCALL IV (DC) Sodium Chloride (SODIUM CHLORIDE) 5 ML ASDIR PRN IV (DC) Sodium Chloride (SODIUM CHLORIDE) 10 ML ASDIR PRN IV (DC) Sodium Chloride (SODIUM CHLORIDE 0.9%) 250 ML ASDIR PRN IV (DC) Physical Exam General appearance: alert, awake, oriented Extremities: RE Motor +EHL, FHL, TA, G/S. Pulses +DP and post tib. SILT. Compartments soft. No calf tenderness. Dressings c/d/i. +SCDs Results Findings/data: Laboratory Tests 12/24 1740 Chemistry Sodium (134 - 147 mEq/L) 140 143 Potassium (3.4 - 5.0 mEq/L) 4.2 3.9 Chloride (100 - 108 mEq/L) 106 110 H Carbon Dioxide (21 - 33 mEq/l) 27 28 Anion Gap (0 - 20) 11 8 BUN (7 - 18 mg/dL) 11 9 Creatinine (0.6 - 1.3 mg/dL) 0.7 0.7 Glomerular Filtr Rate (80 - 90) 84.5 84.5 Glucose (70 - 110 mg/dL) 171 H 130 H Calcium (8.0 - 10.5 mg/dL) 9.3 9.0 Phosphorus (2.5 - 4.9 MG/DL) 3.9 3.7 Magnesium (1.80 - 2.40 mg/dL) 1.99 2.07 Laboratory Tests 12/24 1740 Hematology WBC (4.5 - 11.0 x10 3/uL) 9.4 8.0 RBC (3.54 - 5.02 x10 6/uL) 4.32 4.35 Hgb (11.0 - 15.0 g/dL) 12.8 12.9 Hct (33.0 - 45.0 %) 39.5 39.5 MCV (81.0 - 99.0 fL) 91.4 90.8 MCH (27.0 - 33.0 pg) 29.6 29.7 MCHC (33.0 - 37.0 g/dL) 32.4 L 32.7 L RDW (11.5 - 14.5 %) 13.0 13.1 Plt Count (150 - 400 x10 3/uL) 199 225 MPV (7.0 - 9.0 fL) 11.7 H 10.6 H Neut % (Auto) (56.0 - 77.0 %) 86.5 H 69.7 Lymph % (Auto) (14.0 - 32.0 %) 10.9 L 26.5 Mckinley % (Auto) (4.8 - 9.0 %) 2.3 L 2.1 L Eos % (Auto) (0.3 - 3.7 %) 0.0 L 0.8 Baso % (Auto) (0.0 - 2.0 %) 0.1 0.5 Neut # (Auto) (2.0 - 7.6 x10 3/uL) 8.12 H 5.56 Lymph # (Auto) (1.0 - 3.8 x10 3/uL) 1.02 2.11 Mckinley # (Auto) (0.1 - 0.8 x10 3/uL) 0.22 0.17 Eos # (Auto) (0.0 - 0.2 x10 3/uL) 0.00 0.06 Baso # (Auto) (0.0 - 0.2 x10 3/uL) 0.01 0.04 Abs Immat Gran (auto) (0.00 - 0.03 x10 3/uL) 0.02 0.03 Add Manual Diff NO NO Immature Gran % (0.0 - 2.0 %) 0.2 0.4 Nucleated RBC % (0 - 0 %) 0.0 0.0 Nucleated RBCs # (Man) (0.0 - 0.1 x10 3/uL) 0.00 0.00 Radiology data: Recent Impressions: RADIOLOGY - XR KNEE 1 OR 2 V RT 12/23 1730 Report Impression - Status: SIGNED Entered: 12/23/2021 2356 Impression: Postop total knee arthroplasty. No complications identified radiographically. Impression By: EvertSGNadiya Mckeon M.D. Diagnosis, Assessment Plan Free text A P: 61 yo F s/p R subvastus TKA w/ Dariela Analgesics DVT ppx DC WBAT Discussed plan w/ Dr. Sesay at 0808 at 1718 RPT #:[id number] END OF REPORT [facility] 2021-12-24 07:45:00 [facility] Clinical Note REPORT#:[id number] REPORT STATUS: Signed DATE:12/24/21 TIME: 744 PATIENT: KAREN FRANCISCO UNIT #: [id number] ROOM/BED: [place] [id number] : 58 AGE: 61 SEX: F ATTEND: Chaya eSsay DO ADM AUTHOR: Walt Guan NP * ALL edits or amendments must be made on the electronic/computer document * Clinical Note Note: H P and DC summary # [id number] at 0745 at 5054 RPT #:[id number] END OF REPORT [facility] 2021-12-24 07:45:00 [id number] [place] [address] PATIENT NAME: KAREN FRANCISCO ADMIT DATE: 12/23/21 ACCOUNT NO: [id number] ROOM NO: [facility] AGE: 61 REPORT TYPE: SHORT STAY DISCHARGE SUMMARY SEX: F ADMITTING PHYSICIAN:Chaya Sesay DO ATTENDING PHYSICIAN:Chaya Sesay DO ADMISSION DATE: 12/23/2021 DISCHARGE DATE: 12/24/2021 HISTORY AND PHYSICAL AND DISCHARGE SUMMARY CHIEF COMPLAINT: Right knee pain, status post surgery. HISTORY OF PRESENT ILLNESS: This is a 61-year-old female with a past medical history of right knee osteoarthritis, morbid obesity, BMI 35.3, came to the hospital for the elective procedure. She failed outpatient treatment for the right knee osteoarthritis. She underwent right total knee arthroplasty. She is awake, alert, and oriented, following command. Her pain is well controlled with the medication. ALLERGIES: NO KNOWN ALLERGIES. PAST MEDICAL HISTORY: Right knee osteoarthritis. PAST SURGICAL HISTORY: [place] tooth removal. FAMILY HISTORY: Noncontributory to illness. SOCIAL HISTORY: No smoking, drinking, or use of illicit drug. MEDICATIONS: Per MAR, reviewed and reconciled. REVIEW OF SYSTEMS: All 14-point systems reviewed. Pertinent positives and negatives are listed in HPI as above, other negative. PHYSICAL EXAMINATION: GENERAL: The patient is awake, following command. VITAL SIGNS: Blood pressure is 123/59, pulse is 51, temperature is 36.0, oxygen saturation 96%, and respiratory rate is 18. HEENT: Normocephalic and atraumatic. NECK: Supple. CARDIOVASCULAR: Regular rhythm. S1 and S2 present. RESPIRATORY: The patient is on room air. No signs of wheezing or crackle. GASTROINTESTINAL: Abdomen is round, soft, and nontender. Bowel sounds are present. GENITOURINARY: No signs of hematuria. MUSCULOSKELETAL: No signs of clubbing or cyanosis. ENDOCRINE: Stable. PSYCHIATRIC: Stable. PATIENT NAME: KAREN FRANCISCO LABORATORY DATA: WBC 9.4, RBC 4.32, hemoglobin 12.8, hematocrit 39.5, and platelet is 199. Chemistry: Sodium is 140, potassium 4.2, chloride 106, carbon dioxide 27, anion gap is 11, BUN is 11, creatinine is 0.7, glucose is 177, calcium is 9.3, phosphorus 3.9, magnesium is 1.99. Total bilirubin 0.4, AST 23, ALT 22, alkaline phosphatase is 95, total protein 7.1, albumin 4.0. Coagulation study; INR 1.0, PTT 31.8, PT 10.9. Urinalysis is negative for UTI. ASSESSMENT: 1. Right knee osteoarthritis, status post right total knee arthroplasty. 2. Right knee pain, status post surgery. 3. Morbid obesity, BMI 35.3. PLAN: 1. Admit to the floor. 2. The patient will go home today after PT. 3. Continue pain medication. 4. Antiemetics. 5. Follow labs and replace as needed. 6. SCD for DVT prophylaxis. 7. Monitor. Dictated By: Walt Guan NP for Tobias Trent MD WT: SSS:KAITLIN/ZAC/NTS Conf#: [id number]#: [id number] Authenticated by Walt Guan On 12/25/2021 05:19:02 AM Authenticated by Tobias Trent MD On 12/29/2021 08:32:06 PM at 0832 at 0519 PATIENT NAME: KAREN FRANCISCO [facility] 2021-12-23 15:57:00 [facility] DT Operative Note REPORT#:[id number] REPORT STATUS: Signed DATE:12/23/21 TIME: 1557 PATIENT: KAREN FRANCISCO UNIT #: [id number] ROOM/BED: : 58 AGE: 61 SEX: F ATTEND: Chaya Sesay DO ADM AUTHOR: Chaya Sesay DO * ALL edits or amendments must be made on the electronic/computer document * Operative Report Operative Note Note: Procedure: Right total Knee Arthroplasty with Dariela Assistance Pre-Operative Diagnosis: Right knee Osteoarthritis Post-Operative Diagnosis: Right knee Osteoarthritis Surgeon: Chaya Sesay DO Line Technician primary: DAYANARA Mae Line Technician secondary: MONA Guy Tourniquet Time: 40 minutes Clinical History: This is a 61 year-old patient with a diagnosis of endstage osteoarthritis who has failed multiple non-operative interventions, and continues to have worsening pain with function and at rest. After failed non- operative measures, the patient is here for treatment for a total knee arthroplasty. Implants: [place] [employer] right knee Cruciate Retaining Femoral Size 2, Tibial universal baseplate Size 2, tibial Bearing Size 2 CS 11 mm Thickness, Patella Size AA 32 x 10 mm The patient was brought to the operating room. The patient was transferred over to the hospital operating room table without any complications. The patient was given general anesthesia and successfully intubated. The patient had a well- padded thigh tourniquet applied to the operative extremity and SCDs placed on the contralateral leg. All of the patients bony prominences were well padded and the operative leg was prepped and draped in the standard sterile fashion. Preoperative antibiotics were given and a time-out performed and verified. Transaminic acid of 1 gram was also given prior to the tourniquet going up. The leg was elevated, exsanguinated, and the tourniquet went up to 350 mmHg. A standard medial parapatellar incision was made. Dissection down to the extensor mechanism was performed maintaining hemostasis with electrocautery. A subvastus approach was taken and entrance into the knee was obtained. There was severe osteoarthritis as well as osteophytes noted. Part of the patellar fat pad was removed. The femoral and tibial ray pins were placed as well as calibrated with the DARIELA. Retractors were placed to protect the collateral ligaments after calibration. Once the femur and tibia were mapped, the osteophytes were removed and soft tissue balancing and implant templating was performed . The DARIELA was now ready for cutting. At that point, the femur and tibia were prepared with the cutting without any complications. The meniscus was removed and any more osteophytes were removed. At this point, the femoral trial, tibial trial, and poly trial were placed and demonstrated excellent length, flexion, extension, and stability. Next the patella was cut and prepared. A trial implant was placed and patella tracking and stability was found to be adequate. All the trials were removed and the knee was copiously irrigated with normal saline. Under third generation cement technique, the cement was mixed. The above mentioned implants were inserted without any complications. All the excess cement was removed. The knee was placed through a range and had full extension, flexion, and stability without any complications. The knee was copiously irrigated and then a betadine wash was performed. 0.5 gm of Vancomycin powder sprinkled over the joint. The periarticular injection was injected into the surrounding tissues for pain control and one gram of transaminic acid was placed in the wound prior to closure. The medial parapatellar incision was closed with #1 vicryl, then 0.5 grams of Vancomycin power was sprinkled over the fascia. 2-0 vicryl for the subcutaneous layer closure, and 3-0 monocryl for the skin closure. An Prineo and dry dressing were applied. A compressive dressing was applied from the foot to the mid thigh. The tourniquet was allowed down. The patient was awoken from general anesthesia, successfully extubated and taken to the recovery room in stable condition. Please note that it was medically necessary to have a knowledgeable rn surgical pcu present for the case. The physicians assistant was present for the entire case and assisted with retraction, neurovascular protection as well as lateral ligament protection, assistance with implantation, closure, and dressing. at 1559 RPT #:[id number] END OF REPORT [facility] 2021-12-23 13:30:00 [facility]) Clinical Note REPORT#:[id number] REPORT STATUS: Signed DATE:12/23/21 TIME: 0 PATIENT: KAREN FRANCISCO UNIT #: [id number] ROOM/BED: [place] [address] : 58 AGE: 61 SEX: F ATTEND: Chaya Sesay DO ADM AUTHOR: Walt Guan NP * ALL edits or amendments must be made on the electronic/computer document * Clinical Note Note: H P and DC summary # [id number] at 0745 at 0909 RPT #:[id number] END OF REPORT [facility] 2021-12-21 09:48:00 [id number] [place] [address] PATIENT NAME: KAREN FRANCISCO ADMIT DATE: ACCOUNT NO: [id number] ROOM NO: AGE: 61 REPORT TYPE: eELECTROCARDIOGRAM REPORT SEX: F ADMITTING PHYSICIAN: ATTENDING PHYSICIAN:Chaya Sesay DO Order: [id number] Test Reason : PREOP Test Date/Time Stamp: TueDec 21 2021 09:48:34 Blood Pressure : / mmHG Vent. Rate : 054 BPM Atrial Rate : 054 BPM P-R Int : 166 ms QRS Dur : 110 ms QT Int : 432 ms P-R-T Axes : 051 002 032 degrees QTc Int : 409 ms Sinus bradycardia Low voltage QRS Incomplete right bundle branch block Abnormal ECG PRE_OP Confirmed by ARPAN ZARAGOZA MD ([id number]) on 12/21/2021 2:55:53 PM Referred By: Self Referred Confirmed by:ARPAN ZARAGOZA MD at 9366 PATIENT NAME: KAREN FRANCISCO [facility]"
[2024-10-06] MEDS ORDERED: ONDANSETRON 4 MG/2 ML VIAL ONE (00:06)
[2024-10-06 00:47] LABS: PT Prothrombin Time 11.8 SECONDS (10-13.0); Protime INR 1.04
[2024-10-06 01:02] LABS: Troponin High Sensitivity 4.4 pg/mL (<58.9)
[2024-10-06 01:02] LABS: Albumin 4.2 g/dL (3.4-5.0); Albumin/Globulin Ratio 1.1 (1.1-1.8); Anion Gap 11.9 mEq/L (5.0-15.0); Bilirubin Total 0.5 mg/dL (0.2-1.0); Potassium 3.9 mEq/L (3.5-5.1); Protein, Total 8.2 g/dL (6.4-8.2)
[2024-10-06 01:04] LABS: Absolute Basophils 0.1 K/uL (0-0.5); Absolute Lymphocytes (CBC) 1.1 K/uL (0.7-4.9); Absolute Monocytes 0.2 K/uL (0.1-1.3); Absolute Neutrophil 6.9 K/uL (1.8-8.0); Basophils % 0.6 % (0-1.3); Eosinophils % 0.1 % (0-4.4); Hematocrit 39.9 % (36.0-45.0); Hemoglobin 13.5 g/dL (12.0-15.0); Lymphocytes % 13.6 % (15.3-44.8); MCH 30.1 pg (27.0-35.0); MCHC 33.9 g/dL (32.0-36.0); MCV 88.9 fL (80-100); MPV 10.2 fL (7.6-11.3); Monocytes % 2.4 % (3.3-12.3); Neutrophils % 83.3 % (41.7-73.7); Platelets 211 thou/uL (152-406); RBC Red Blood Cell Count 4.49 M/uL (3.86-4.86); Red Cell Distribution Width 13.5 % (12.1-15.2)
--- NOTE | 2024-10-06 02:34 | RAD REPORT ---
EXAM DESCRIPTION: Extremity Venous Uni Ltd RadLex: US EXTREMITY VEINS UNILATERAL CLINICAL HISTORY: 64 years Female; PAIN TECHNIQUE: Spectral analysis and color/grayscale sonographic images of the left leg were obtained utilizing a hi gh-frequency linear array transducer supplemented with color Doppler, compression and augmentation techniques. COMPARISON: None. FINDINGS: Common femoral: normal Greater saphenous: normal Superficial femoral: normal Popliteal: normal Calf Veins: normal IMPRESSION: No sonographic evidence for left lower extremity deep venous thrombosis. Electronically signed by: Nicolas Young MD 10/06/2024 02:26 AM CDT RP TYG Due to temporary technical issues with the PACS/Power scribe reporting system, reports are being sign ed by the in-house radiologist without review as a courtesy to ensure prompt reporting the interpreting rad iologist is fully responsible for the content of the report. Transcribed Date/Time: 10/06/2024 2:34 AM
--- NOTE | 2024-10-06 02:40 | ER ---
Nurse's Notes [facility] Name: Deborah Francisco Age: 64 yrs Sex: Female : 1960 Arrival Date: 10/05/2024 Time: 22:26 Bed 2 Private MD: Diagnosis: Vomiting, abnormal EKG incidental finding Presentation: 10/05 22:39 Chief complaint: Patient states: NAUSEA/VOMITING, DENIES DIARRHEA OR FEVER OR AB PAIN. lg3 Coronavirus screen: Client denies travel out of the [place] in the last 14 days. Ebola Screen: Patient denies exposure to infectious person. Initial Sepsis Screen: Does the patient meet any 2 criteria? No. Patient's initial sepsis screen is negative. Does the patient have a suspected source of infection? No. Patient's initial sepsis screen is negative. Risk Assessment: Do you want to hurt yourself or someone else? Patient reports no desire to harm self or others. Onset of symptoms was October 05, 2024 at 13:00. 22:39 Method Of Arrival: Ambulatory lg3 22:39 Acuity: RUPESH 3 lg3 Triage Assessment: 22:41 General: Appears in no apparent distress. comfortable, Behavior is calm, cooperative. lg3 Pain: Denies pain. GI: Reports nausea, vomiting. Historical: - Allergies: 22:41 NKDA; lg3 - PMHx: 22:41 None; lg3 - Immunization history:: Adult Immunizations up to date. - Infectious Disease History:: Denies. - Social history:: Smoking status: Patient denies any tobacco usage or history of. Patient uses alcohol, occasionally. Screenin/03 00:00 [facility] ED Fall Risk Assessment (Adult) History of falling in the last 3 months, cp4 including since admission No falls in past 3 months (0 pts) Confusion or Disorientation No (0 pts) Intoxicated or Sedated No (0 pts) Impaired Gait No (0 pts) Mobility Assist Device Used No (0 pt) Altered Elimination No (0 pt) Score/Fall Risk Level 0 - 2 = Low Risk Oriented to surroundings, Maintained a safe environment, Assessed \T\ reinforced patient's understanding of fall precautions, Hourly rounding (assess needs \T\ fall precautionary measures) done. Abuse screen: Denies threats or abuse. Denies injuries from another. Nutritional screening: No deficits noted. Tuberculosis screening: No symptoms or risk factors identified. Assessment: 00:00 General: Appears in no apparent distress. comfortable, Behavior is calm, cooperative, cp4 appropriate for age. Pain: Denies pain. 00:00 Neuro: Level of Consciousness is awake, alert, obeys commands, Oriented to person, cp4 place, time, situation. Cardiovascular: Patient's skin is warm and dry. Respiratory: Airway is patent Respiratory effort is even, unlabored. GI: Abdomen is round non-distended, Bowel sounds present X 4 quads. Abd is soft and non tender X 4 quads. Reports nausea, vomiting. : No signs and/or symptoms were reported regarding the genitourinary system. EENT: No signs and/or symptoms were reported regarding the EENT system. Derm: No signs and/or symptoms reported regarding the dermatologic system. Musculoskeletal: No signs and/or symptoms reported regarding the musculoskeletal system. Vital Signs: 10/05 22:39 BP 142 / 97; Pulse 61; Resp 18; Temp 97.1(TE); Pulse Ox 95% ; Weight 96.62 kg; Height 5 lg3 ft. 4 in. ; Pain 0/10; 10/06 00:45 BP 115 / 51; Pulse 49; Resp 18; Pulse Ox 99% ; cp4 01:13 BP 120 / 55; Pulse 71; Resp 18; Pulse Ox 99% ; cp4 02:35 BP 120 / 52; Pulse 77; Resp 18; Pulse Ox 99% ; cp4 10/05 22:39 Body Mass Index 36.56 (96.62 kg, 162.56 cm) lg3 10/05 22:39 Pain Scale: Adult lg3 ED Course: 10/05 22:29 Patient arrived in ED. gm2 22:33 Gary Clay MD is Attending Physician. sp3 22:41 Triage completed. lg3 22:41 Arm band placed on right wrist. lg3 10/06 00:00 Bed in low position. Call light in reach. Side rails up X 1. Provided Education on: cp4 nausea/vomiting. 00:00 No provider procedures requiring assistance completed. intact, bleeding controlled, No cp4 redness/swelling at site. Pressure dressing applied. 00:31 Jolie Frazier, PAM is Primary Nurse. ha1 00:31 PT-INR Sent. ha1 00:31 BNP Sent. ha1 00:31 CBC with Diff Sent. ha1 00:31 CMP Sent. ha1 00:31 Lipase Sent. ha1 00:53 US Extremity Venous Unilateral Ltd In Process Unspecified. EDMS 02:40 Valdez Larios MD is Referral Physician. sp3 Administered Medications: 00:08 Drug: Ondansetron IVP 4 mg IVP once; over 2 minutes Route: IVP; Site: right antecubital;cp4 02:40 Follow up: Response: No adverse reaction cp4 00:08 Drug: NS 0.9% IV 1000 ml IV at 1 bolus Per protocol; to be given as a bolus over 60 cp4 minutes Route: IV; Rate: 1 bolus; Site: right antecubital; 02:40 Follow up: IV Status: Infusion continued cp4 Medication: 00:00 VIS not applicable for this client. cp4 Outcome: 02:39 Discharge ordered by MD. sp3 02:57 Discharged to home ambulatory, cp4 02:57 Condition: stable 02:57 Discharge instructions given to patient, family, Instructed on discharge instructions, follow up and referral plans. medication usage, Demonstrated understanding of instructions, follow-up care, medications, Prescriptions given X 1, 02:57 Patient left the ED. cp4 Signatures: Dispatcher [employer] EDMS Leeanne Wright RN RN lg3 Gary Clay MD MD sp3 Jolie Frazier RN RN ha1 Susanna Lara cp4 Lisa Crowe gm2 Corrections: (The following items were deleted from the chart) 00:45 00:11 BP 115 / 51; Pulse 49bpm; Resp 18bpm; Pulse Ox 99%; cp4 cp4 00:46 00:44 BP 111 / 52; Pulse 75bpm; Resp 18bpm; Pulse Ox 99%; cp4 cp4 00:46 05/02 23:55 BP 115 / 51; Pulse 74bpm; Resp 18bpm; Pulse Ox 99%; cp4 cp4
--- NOTE | 2024-10-06 02:40 | EDPHYS ---
Physician Documentation [facility] Name: Deborah Francisco Age: 64 yrs Sex: Female : 1960 Arrival Date: 10/05/2024 Time: 22:26 Bed 2 Private MD: ED Physician Gary Clay HPI: 10/06 01:03 This 64 yrs old Female presents to ER via Ambulatory with complaints of sp3 Nausea/Vomiting. 01:03 64-year-old female with no past medical history presents with chief complaint nausea sp3 and vomiting for several days. She denies any abdominal pain, chest pain, back pain, fever, URI symptoms, known sick contacts, travel history, substance use, or any other signs or symptoms on ROS at this time. No blood or mucus in her emesis.. Historical: - Allergies: 10/05 22:41 NKDA; lg3 - PMHx: 22:41 None; lg3 - Immunization history:: Adult Immunizations up to date. - Infectious Disease History:: Denies. - Social history:: Smoking status: Patient denies any tobacco usage or history of. Patient uses alcohol, occasionally. ROS: 10/06 01:04 Constitutional: Negative for fever, chills, and weight loss, Eyes: Negative for injury, sp3 pain, redness, and discharge, ENT: Negative for injury, pain, and discharge, Neck: Negative for injury, pain, and swelling, Cardiovascular: Negative for chest pain, palpitations, and edema, Respiratory: Negative for shortness of breath, cough, wheezing, and pleuritic chest pain, Back: Negative for injury and pain, MS/Extremity: Negative for injury and deformity, Skin: Negative for injury, rash, and discoloration, Neuro: Negative for headache, weakness, numbness, tingling, and seizure, Psych: Negative for depression, anxiety, suicide ideation, homicidal ideation, and hallucinations, Allergy/Immunology: Negative for hives, rash, and allergies, Endocrine: Negative for neck swelling, polydipsia, polyuria, polyphagia, and marked weight changes, Hematologic/Lymphatic: Negative for swollen nodes, abnormal bleeding, and unusual bruising, All other systems are negative, Exam: 01:04 Constitutional: This is a well developed, well nourished patient who is awake, alert, sp3 and in no acute distress. Head/Face: Normocephalic, atraumatic. Eyes: Pupils equal round and reactive to light, extra-ocular motions intact. Lids and lashes normal. Conjunctiva and sclera are non-icteric and not injected. Cornea within normal limits. Periorbital areas with no swelling, redness, or edema. Neck: Trachea midline, no thyromegaly or masses palpated, and no cervical lymphadenopathy. Supple, full range of motion without nuchal rigidity, or vertebral point tenderness. No Meningismus. Chest/axilla: Normal chest wall appearance and motion. Nontender with no deformity. No lesions are appreciated. Cardiovascular: Regular rate and rhythm with a normal S1 and S2. No gallops, murmurs, or rubs. Normal PMI, no JVD. No pulse deficits. Respiratory: Lungs have equal breath sounds bilaterally, clear to auscultation and percussion. No rales, rhonchi or wheezes noted. No increased work of breathing, no retractions or nasal flaring. Abdomen/GI: Soft, non-tender, with normal bowel sounds. No distension or tympany. No guarding or rebound. No evidence of tenderness throughout. Back: No spinal tenderness. No costovertebral tenderness. Full range of motion. Skin: Warm, dry with normal turgor. Normal color with no rashes, no lesions, and no evidence of cellulitis. MS/ Extremity: Pulses equal, no cyanosis. Neurovascular intact. Full, normal range of motion. Neuro: Awake and alert, GCS 15, oriented to person, place, time, and situation. Cranial nerves II-XII grossly intact. Motor strength 5/5 in all extremities. Sensory grossly intact. Cerebellar exam normal. Normal gait. Psych: Awake, alert, with orientation to person, place and time. Behavior, mood, and affect are within normal limits. 01:04 ECG was reviewed by the Attending Physician. EKG demonstrates sinus arrhythmia at 70 bpm with multiple PACs, normal axis, normal QRS, nonspecific diffuse ST/T changes without evidence of acute ischemia. QTc noted to be 473. Vital Signs: 10/05 22:39 BP 142 / 97; Pulse 61; Resp 18; Temp 97.1(TE); Pulse Ox 95% ; Weight 96.62 kg; Height 5 lg3 ft. 4 in. ; Pain 0/10; 10/06 00:45 BP 115 / 51; Pulse 49; Resp 18; Pulse Ox 99% ; cp4 01:13 BP 120 / 55; Pulse 71; Resp 18; Pulse Ox 99% ; cp4 02:35 BP 120 / 52; Pulse 77; Resp 18; Pulse Ox 99% ; cp4 10/05 22:39 Body Mass Index 36.56 (96.62 kg, 162.56 cm) 3 10/05 22:39 Pain Scale: Adult 3 MDM: 10/05 22:59 Medical Screening Exam initiated [facility] 10/06 01:05 Data reviewed: vital signs, nurses notes, lab test result(s), EKG, radiologic studies. 3 ED course: 64-year-old female with chief complaint nausea and vomiting. Patient noted to have multiple PACs and sinus arrhythmia on EKG as well. Differential diagnosis includes gastritis, GERD, biliary pathology, ACS, electrolyte abnormality, among others. Abdominal exam benign. Will obtain general labs and cardiac labs as well. Ondansetron IV administered. Disposition pending workup and patient course.. 02:38 ED course: Patient passed p.o. challenge. Workup negative and I do not believe she is 3 having any anginal equivalents to warrant further cardiac investigation. I have advised her to follow-up with a wireless team member.. 10/05 23:01 Order name: CBC with Diff; Complete Time: 01:07 [facility] 10/05 23:01 Order name: CMP; Complete Time: 01:07 [facility] 10/05 23:01 Order name: Lipase; Complete Time: 01:07 [facility] 10/06 00:12 Order name: Troponin High Sensitivity; Complete Time: 01:07 [facility] 10/06 00:12 Order name: BNP; Complete Time: 01:07 [facility] 10/06 00:12 Order name: PT-INR; Complete Time: 01:07 [facility] 10/06 00:12 Order name: US Extremity Venous Unilateral Ltd [facility] 10/06 00:12 Order name: EKG; Complete Time: 00:13 [facility] 10/05 23:01 Order name: IV Saline Lock; Complete Time: 00:09 [facility] 10/05 23:01 Order name: Labs collected and sent; Complete Time: 00:09 [facility] 10/06 00:12 Order name: EKG - Nurse/Tech; Complete Time: 00:31 [facility] 10/06 02:15 Order name: PO challenge; Complete Time: 02:40 sp3 Administered Medications: 00:08 Drug: Ondansetron IVP 4 mg IVP once; over 2 minutes Route: IVP; Site: right antecubital;cp4 02:40 Follow up: Response: No adverse reaction cp4 00:08 Drug: NS 0.9% IV 1000 ml IV at 1 bolus Per protocol; to be given as a bolus over 60 cp4 minutes Route: IV; Rate: 1 bolus; Site: right antecubital; 02:40 Follow up: IV Status: Infusion continued cp4 Disposition Summary: 10/06/24 02:39 Discharge Ordered Notes: Location: Home sp3 Condition: Stable sp3 Diagnosis - Vomiting, abnormal EKG incidental finding sp3 Followup: sp3 - With: Private Physician - When: Upon discharge from the Emergency Department - Reason: Continuance of care Followup: sp3 - With: Valdez Larios MD - When: Upon discharge from the Emergency Department - Reason: Recheck today's complaints Discharge Instructions: - Discharge Summary Sheet sp3 - Electrocardiogram sp3 - Vomiting, Adult sp3 Forms: - Medication Reconciliation Form sp3 - Antibiotic Education sp3 - Prescription Opioid Use sp3 - Patient Portal Instructions sp3 - Leadership Thank You Letter sp3 Prescriptions: - ondansetron 8 mg Oral Tablet,disintegrating - take 1 tablet ORAL route every 12 hours; 20 tablet; Refills: 0, Product sp3 Selection Permitted Signatures: Dispatcher [employer] Leeanne Forbes RN RN lg3 Gary Clay MD MD sp3 Susanna Lara cp4 Corrections: (The following items were deleted from the chart) 00:13 00:13 Extremity Venous Uni [email or web address] ordered. EDMS EDMS
[2024-10-06 04:17] VITALS: TEMP 97.1
[2024-10-06 04:18] VITALS: O2SAT 99
[2024-10-06 04:22] VITALS: BP 120/52
--- NOTE | 2024-10-08 12:10 | EKG ---
Test Date: 2024-10-06 Test Time: 00:22:17 Entry Level Marketing Representative: TAYLOR MEASUREMENT RESULTS: Intervals: Rate: 69 CT: QRSD: 110 QT: 442 QTc: 473 [place]: P: CT: QRS: 10 T: 59 INTERPRETIVE STATEMENTS: Atrial fibrillation with a competing junctional pacemaker Incomplete right bundle branch block Possible Inferior infarct, age undetermined Abnormal ECG Compared to ECG 03/11/2013 01:53:17 Incomplete right bundle-branch block now present Sinus bradycardia no longer present Myocardial infarct finding still present Electronically Signed On 10-08-24 12:07:33 CDT by John Gallagher
== END 2024-10-06 02:57 | disposition home or self-care (01) ==
LOC: ER 22:26
DX: R11.10 Vomiting, unspecified (principal); R94.31 Abnormal electrocardiogram [ECG] [EKG]
CPT/HCPCS: 36415; 80053; 83690; 83880; 84484; 85025; 85610; 93005; 93971; 96361; 96374; 99284; J2405